=== PATIENT | female | born 1955 | race Caucasian/White ===

== ENCOUNTER → 2017-05-13 | Outpatient (CLI) | payer BC ==
[~2017-05-13] MED LIST: ASPEC81 PO; MAGN400T6 PO; METO25TA56 PO; [UNRECOGNIZED DRUG - OTHER] PO
[2017-05-13 11:28] LABS: ALT/SGPT 38 U/L (12-78); AST/SGOT 31 U/L (15-37); BLOOD UREA NITROGEN 21 mg/dl (7-18); BUN/CREATININE RATIO 17.8 (10-20); CARBON DIOXIDE 29 mmol/L (21-32); CHLORIDE 107 mmol/L (98-107); GLUCOSE 92 mg/dl (70-99); POTASSIUM 4.4 mmol/L (3.5-5.1); SODIUM 141 mmol/L (136-145)
[2017-05-13 11:31] LABS: CHOLESTEROL 143 mg/dl (0-200); CHOLESTEROL/HDL RATIO 2.3; HDL CHOLESTEROL 61 mg/dl; LDL CHOLESTEROL CALCULATED 70 mg/dl; TRIGLYCERIDES 62 mg/dl (0-150); VERY LOW DENSITY LIPOPROT CALC 12 mg/dl
[2017-05-13 13:26] LABS: CALCIUM 9.9 mg/dl (8.5-10.1)
== END | disposition home or self-care (01) ==
LOC: C.LABBC 07:14
DX: I10 Essential (primary) hypertension (principal); E78.5 Hyperlipidemia, unspecified

== ENCOUNTER → 2017-07-14 | Outpatient (CLI) | payer BC | END | disposition home or self-care (01) | LOC: C.MAMM 10:51 | DX: Z13.820 Encounter for screening for osteoporosis (principal); M85.851 Other specified disorders of bone density and structure, right thigh; M85.852 Other specified disorders of bone density and structure, left thigh; M85.88 Other specified disorders of bone density and structure, other site ==

== ENCOUNTER → 2017-07-14 | Outpatient (CLI) | payer BC ==
--- NOTE | 2017-07-14 12:30 | DIAGNOSTIC IMAGING REPORT ---
BILATERAL CAROTID DOPPLER STUDY HISTORY: THYROID Nodule, hx OF CAROTID STENOSIS COMPARISON: Carotid Doppler 01/25/2014. TECHNIQUE: Real-time, grayscale, and color Doppler sonography of the carotid arteries was performed. Imaging reviewed in the transverse and longitudinal planes. All measurements were calculated based on NASCET criteria. FINDINGS: Antegrade flow is seen in the bilateral vertebral arteries. The brachial pressures are hemodynamically similar. Bilateral carotid bifurcation calcified plaque, right greater than left. The peak systolic velocity within the right ICA is 148 cm/s proximally. The right systolic ratio is 2.8. The peak systolic velocity within the left ICA is 72 cm/s. The left systolic ratio is 1.1. IMPRESSION: 1. Approximately 50-60% stenosis within the proximal right internal carotid artery. This is similar to the prior study. 2. No significant stenosis within the left carotid arteries. Electronically signed by: Rusty Bojorquez M.D. 07/14/2017 12:29 PM Dictated Date/Time: 07/14/2017 12:26 PM
== END | disposition home or self-care (01) ==
LOC: C.ULTR 11:37
DX: I65.29 Occlusion and stenosis of unspecified carotid artery (principal)

== ENCOUNTER → 2017-08-04 | Outpatient (CLI) | payer BC | END | disposition home or self-care (01) | LOC: C.LABBC 09:01 | DX: M85.80 Other specified disorders of bone density and structure, unspecified site (principal) ==

== ENCOUNTER → 2017-10-23 | Outpatient (CLI) | payer BC | END | disposition home or self-care (01) | LOC: C.LABBC 07:55 | DX: E55.9 Vitamin D deficiency, unspecified (principal) ==

== ENCOUNTER → 2018-03-24 | Outpatient (CLI) | payer OTHER ==
[2018-03-24 14:22] LABS: INFLUENZA A PCR Neg for Influ A (NEG)
[2018-03-24 14:25] LABS: INFLUENZA B PCR POS for Influ B (NEG)
== END | disposition home or self-care (01) ==
LOC: C.LAB 12:09
DX: R50.9 Fever, unspecified (principal); R05 Cough

== ENCOUNTER → 2018-06-26 | Outpatient (CLI) | payer OTHER ==
[2018-06-26 11:23] LABS: ALT/SGPT 31 U/L (12-78); AST/SGOT 27 U/L (15-37); BLOOD UREA NITROGEN 17 mg/dl (7-18); CALCIUM 9.3 mg/dl (8.5-10.1); CARBON DIOXIDE 27 mmol/L (21-32); CHOLESTEROL 123 mg/dl (0-200); CREATININE 1.28 mg/dl (0.60-1.20); GLUCOSE 91 mg/dl (70-99); LDL CHOLESTEROL CALCULATED 50 mg/dl; POTASSIUM 4.3 mmol/L (3.5-5.1); SODIUM 138 mmol/L (136-145)
== END | disposition home or self-care (01) ==
LOC: C.LABBC 07:51
DX: I10 Essential (primary) hypertension (principal); E78.5 Hyperlipidemia, unspecified; M85.88 Other specified disorders of bone density and structure, other site

== ENCOUNTER 2025-04-24 09:00 | Observation (INO) ==
[2025-04-24 09:54] LABS: Basophils # (auto) 0.05 K/uL (0.00-0.20); Basophils % (auto) 1.4 %; Eosinophils # (auto) 0.01 K/uL (0.00-0.50); Eosinophils % (auto) 0.3 %; Hematocrit (blood only) 34.1 % (37.0-47.0); Hemoglobin 11.7 g/dl (12.0-16.0); Immature Granulocytes # (auto) 0.02 K/uL (0.01-0.20); Immature Granulocytes % (auto) 0.6 %; Lymphocytes # (auto) 0.81 K/uL (1.20-3.40); Lymphocytes % (auto) 23.1 %; Mean Corpuscular Hemoglobin 34.1 pg (25.0-34.0); Mean Corpuscular Hgb Conc 34.3 g/dL (32.0-36.0); Mean Corpuscular Volume 99.4 fL (80.0-100.0); Mean Platelet Volume 8.4 fL (9.4-12.4); Monocytes # (auto) 0.15 K/uL (0.11-0.59); Monocytes % (auto) 4.3 %; Neutrophils # (auto) 2.47 K/uL (1.40-6.50); Neutrophils % (auto) 70.3 %; Platelet Count 353 K/uL (130-400); RDW Coefficient of Variation 15.2 % (11.5-14.5); RDW Standard Deviation 55.4 fL (36.4-46.3); Red Blood Count 3.43 M/uL (4.20-5.40); White Blood Count 3.51 K/ul (4.8-10.8)
--- NOTE | 2025-04-24 10:02 | CT Scan Report ---
EXAM: CT Abdomen and Pelvis Without Intravenous Contrast INDICATION: Nausea, vomiting and dysuria. TECHNIQUE: Axial computed tomography images of the abdomen and pelvis without intravenous contrast. Sagittal and coronal reformatted images were created and reviewed. This CT exam was performed using one or more of the following dose reduction techniques: automated exposure control, adjustment of the mA and/or kV according to patient size, and/or use of iterative reconstruction technique. COMPARISON: 03/31/2025 FINDINGS: Limitations: None. Lung bases: Stable coarse scarring in the right lower lobe. Pleural space: No visualized pleural effusion or pneumothorax. Heart: No abnormality noted. Mediastinum: No abnormality noted. ABDOMEN: Liver: Lack of intravenous contrast limits detection of some masses. No abnormality noted. Gallbladder and bile ducts: No calcified stones or surrounding fluid. No ductal dilation. Pancreas: No pancreatic mass, calcification, inflammation or ductal dilation noted. Spleen: No significant abnormality noted. Adrenals: No significant abnormality noted. Kidneys and ureters: No abnormality noted. No stones. No hydronephrosis. No significant perinephric fluid. Stomach and bowel: Limited assessment of the gastrointestinal tract given moderate surrounding ascites, generalized mesenteric, omental and body wall edema and lack of opacification. There are multiple distal left colonic diverticula. There are multiple dilated thickened small bowel loops which are poorly assessed. There is thickening of the right, transverse and proximal descending colon. There are 2 vague rounded opacities surrounded by ascitic fluid in the pelvis which are likely bowel loops. No visible pneumatosis. PELVIS: Appendix: No findings to suggest acute appendicitis. Bladder: Appears normal for the degree of filling. No stones or inflammation. No large mass. Masses may not be detected in the absence of opacification. Reproductive: No abnormalities noted. ABDOMEN and PELVIS: Intraperitoneal space: There is now small to moderate amounts of low-density ascitic fluid in the abdomen and pelvis. No free air. No organized or loculated collection. Bones/joints: No acute changes. Soft tissues: No significant abnormality noted. Vasculature: Atherosclerotic calcification of the aorta and branches. No aneurysm. Lymph nodes: No pathologically enlarged lymph nodes. IMPRESSION: 1. There is now moderate ascitic fluid and generalized edema within the mesentery, omentum and body wall which limits assessment of the intestinal tract. Impression diffuse small bowel thickening as well as thickening of the right and transverse colon probable. No obstruction. Enterocolitis considered. 2. No drainable collection or free air noted. ACT 112: N/A Electronically signed by Glo Garza 04-24-2025 10:02 AM
--- NOTE | 2025-04-24 10:12 | Emergency Department Note ---
History of Present Illness General Chief complaint: Flu Like Symptoms Stated complaint: SOMACH FLU,DEHYDRATION,NAUSEA Time Seen by Provider: 04/24/25 09:10 History of Present Illness Provider Complaint: + nausea, + vomiting, + diarrhea and + abdominal pain Onset (ago): week(s) 2 Description of Vomiting: no bilious, no blood-streaked, no bloody or no coffee grounds Description of Diarrhea: no mucousy, no tarry, no blood-streaked or no bloody (bright red) Associated Abdominal Pain: Yes Location of pain: + diffuse Maximum Pain Intensity: 5 Current Pain Intensity: 5 Quality: + cramping and + aching Pain Consistency: + intermittent Relieved By: + none Exacerbated By: + bowel movement Context: + recent antibiotic use (Patient states she was recently on cefuroxime and Bactrim secondary to a recurrent UTI); no foreign travel, no possible food poisoning, no trauma, no anticoagulant use, no NSAID use, no caffeine, no smoking or no marijuana use Associated symptoms: + decreased urine output; no myalgias, no cough, no diaphoresis, no fever/chills (Tmax 99), no rash, no dysuria, no anxiety or no numbness HPI Narrative: Patient currently on oral chemotherapy for breast cancer Home Medications Medication Instructions Recorded Confirmed Type cholecalciferol (vitamin D3) 50 50 mcg PO DAILY 02/18/22 04/24/25 History mcg (2,000 unit) capsule magnesium oxide 400 mg (241.3 mg 400 mg PO DAILY 02/18/22 04/24/25 History magnesium) tablet denosumab 60 mg/mL subcutaneous 60 mg subcut .Q6 months 09/18/22 04/24/25 History syringe (Prolia) loratadine 10 mg tablet (Claritin) 10 mg PO DAILY PRN Allergy Symptoms 09/18/22 04/24/25 History fulvestrant 250 mg/5 mL 500 mg IM MO 12/08/23 04/24/25 History intramuscular syringe (Faslodex) rosuvastatin 5 mg tablet 5 mg PO DAILY #90 tabs 06/07/24 04/24/25 Rx palbociclib 125 mg capsule 100 mg PO DAILY 06/21/24 04/24/25 History (Ibrance) gabapentin 300 mg capsule 300 mg PO HS PRN shoulder pain #90 08/10/24 04/24/25 Rx caps amlodipine 5 mg tablet 5 mg PO DAILY #90 tabs 02/02/25 04/24/25 Rx sulfamethoxazole 800 1 tab PO BID 7 days #14 tabs 04/19/25 04/24/25 Rx mg-trimethoprim 160 mg tablet Allergies Allergy/AdvReac Type Severity Reaction Status Date / Time diazepam [From Valium] AdvReac Unknown Panic Verified 04/14/25 13:25 attack Past Med/Surg History Problem List (Updated 04/24/25 @ 11:46 by Zuhair Flores MD) JANET (acute kidney injury) (Acute) Hyponatremia (Acute) Myofascial pain Spasm of right trapezius muscle Malignant neoplasm of breast Right cervical radiculopathy Biceps tendinitis of right shoulder Anterolisthesis of cervical spine Disc-osteophyte complex Facet arthropathy, cervical Neuroforaminal stenosis of cervical spine Hypercalcemia Acquired deviated nasal septum Atopic dermatitis of face Chronic neck pain Cervical spondylosis Hypertension Osteoporosis Hypercholesteremia Carotid stenosis Metastatic adenocarcinoma (Chronic 08/22/20) Right cervical lymph node 08/22/2020; follows w/ Dr Sanches and [facility] Dr Reyes Medical History Prophylactic chemotherapy oral and monthly injection Seasonal allergies Retinal detachment Right Thyroid nodule monitoring Surgical History History of bilateral mastectomy 01/31/25 History of lumpectomy cancerous masses removed from neck and inside mouth History of cataract surgery Right eye only History of lung surgery VATS- 2010 Hx of colonoscopy History of appendectomy Family History Mother , 68yo CHF (congestive heart failure) Hypertension Heart disease Father , 87yo Parkinsons Hypertension Brother Hypertension Sister No problems noted. Son No problems noted. Son No problems noted. Son No problems noted. Other No family history of adverse response to anesthesia No family history of bleeding disorder Social History Smoking Status: Never smoker Tobacco Type: Cigarettes Age Started Using Tobacco: 15; Age Quit Using Tobacco: 31; packs per day: 1; Cigarettes Per Day: 1 PPD x 15yrs; Second Hand Exposure: No; Do You Dip or Chew Tobacco: No; Hx Alcohol Use: Yes Alcohol type: wine Hx Substance Use: No Preferred Language: Wolof Communication Ability: Effective Visual Impairment: No Limitations Hearing Ability: Normal Industrial Relations Representative Required: No Beliefs That Will Affect Care: None marital status: Current Living Situation: Spouse current occupational status: retired current occupation: Mental health counselor at [employer] Feels Safe at Home: Yes Diet: other caffeine: Yes (2 cups/day) during the past year weight has: remained stable Seatbelt Use: always Assistive Devices: Glasses Physical Exam 2 Vital Signs: Vital Signs - 24 hr 04/24/25 09:05 04/24/25 09:55 04/24/25 10:27 Temperature 35.8 C L Temperature Source Oral Pulse Rate 94 H 84 84 Pulse Rate from Sp O2 Sensor Pulse Rhythm Regular Regular Pulse Strength Normal Respiratory Rate 18 18 Blood Pressure 119/80 Blood Pressure [place] n 93 Blood Pressure Pos ition Sitting Pulse Oximetry 99 99 Oxygen Delivery Me thod Room Air Room Air Sepsis Recent Feve r Within 48 Hours No Sepsis New/Unexpla ined Change in Men aishwarya Status No Sepsis Action Take n by Nursing No Action Required 04/24/25 10:27 04/24/25 10:57 Temperature Temperature Source Pulse Rate 84 Pulse Rate from Sp O2 Sensor 84 87 Pulse Rhythm Pulse Strength Respiratory Rate 13 16 Blood Pressure 114/77 123/79 Blood Pressure [place] n 89 93 Blood Pressure Pos ition Pulse Oximetry 97 95 Oxygen Delivery Me thod Sepsis Recent Feve r Within 48 Hours Sepsis New/Unexpla ined Change in Men aishwarya Status Sepsis Action Take n by Nursing Physical Exam: Physical Exam GENERAL: oriented to person, place, and time. appears well-developed and well- nourished. She does not appear distressed. HENT: Exam performed. -Head: Normocephalic and atraumatic. -Right Ear: External ear normal. No mastoid erythema -Left Ear: External ear normal. No mastoid erythema -Mouth/Throat: The oropharynx is clear and moist. No trismus in the jaw. No dental abscesses or uvula swelling. No oropharyngeal exudate or tonsillar abscesses. EYES: Conjunctivae and EOM are normal.Right eye exhibits no discharge. Left eye exhibits no discharge. No scleral icterus. NECK: Normal range of motion. Neck supple. No JVD present. No tracheal deviation and normal range of motion present. CV: Normal rate, regular rhythm, normal heart sounds and intact distal pulses. There is no peripheral edema. Palpable radial pulses bue. PULM/CHEST: Effort normal and breath sounds normal. No respiratory distress. No stridor. no wheezes.no rales. -Chest Wall: no tenderness to palpation ABD: The abdomen is soft. Bowel sounds are normal. no distension. No mass is present. There is no tenderness. There is no rebound, no guarding, no Rodriguez's sign and no tenderness at McBurney's point. Rovsig negative. No CVA tenderness bilaterally. MUSC/SKEL: Normal range of motion. There is no peripheral edema, tenderness or deformity. NEURO: Motor and sensation grossly intact. SKIN: Skin is warm and dry. not diaphoretic. PSYCH: normal mood and affect. Behavior is normal. Judgment and thought content normal. Course Course 09: The patient was evaluated in room C7. A complete history and physical exam was performed Cardiac monitoring: An order was placed for continuous cardiac monitoring. The monitor shows a rate of 90 with sinus rhythm interpreted by me 1040: Vital signs stable. Labs are significant for sodium of 126 and a creatinine of 1.6. Normal saline IV fluids given to the patient. No seizure- like activity normal mental status no need for hypertonic saline. IV fluids continued. Awaiting stool cultures. [facility]. Administered Medications Discontinued Medications Sodium Chloride (Nss) 1,000 mls @ 999 mls/hr IV .Q1H1M [facility] Stop: 04/24/25 10:30 Last Admin: 04/24/25 10:23 Dose: 999 mls/hr Documented By: ISMAEL Lidocaine HCl (Lidocaine 1% Local 20 Ml Vial) Confirm Administered Dose 1 ml .ROUTE .STK-MED ONE Stop: 04/24/25 10:21 Last Admin: 04/24/25 10:47 Dose: Not Given Documented By: ISMAEL Ondansetron HCl (Ondansetron Inj 2 Mg/Ml 2 Ml Vial) 4 mg IV NOW STA Stop: 04/24/25 09:27 Last Admin: 04/24/25 10:23 Dose: 4 mg Documented By: ISMAEL Medical Decision Making Laboratory Data Attestation: I reviewed the patient's lab results. 04/24/25 09:39 04/24/25 09:39 Lab Results 04/24/25 04/24/25 04/24/25 Range/Units 09:39 10:21 10:59 WBC 3.51 L (4.8-10.8) K/ul RBC 3.43 L (4.20-5.40) M/uL Hgb 11.7 L (12.0-16.0) g/dl Hct 34.1 L (37.0-47.0) % MCV 99.4 (80.0-100.0) fL MCH 34.1 H (25.0-34.0) pg MCHC 34.3 (32.0-36.0) g/dL RDW Std Deviation 55.4 H (36.4-46.3) fL RDW Coeff of Ute 15.2 H (11.5-14.5) % Plt Count 353 (130-400) K/uL MPV 8.4 L (9.4-12.4) fL Immature Gran % (Auto) 0.6 % Neut % (Auto) 70.3 % Lymph % (Auto) 23.1 % [place] % (Auto) 4.3 % Eos % (Auto) 0.3 % Baso % (Auto) 1.4 % Neut # (Auto) 2.47 (1.40-6.50) K/uL Lymph # (Auto) 0.81 L (1.20-3.40) K/uL [place] # (Auto) 0.15 (0.11-0.59) K/uL Eos # (Auto) 0.01 (0.00-0.50) K/uL Baso # (Auto) 0.05 (0.00-0.20) K/uL Immature Gran # (Auto) 0.02 (0.01-0.20) K/uL PT 11.8 (9.0-12.0) Seconds INR 1.1 (0.9-1.1) APTT 27 (21-31) Seconds PTT Ratio 1.0 Sodium 126 L (136-145) mmol/L Potassium 4.4 (3.5-5.1) mmol/L Chloride 95 L (98-107) mmol/L Carbon Dioxide 20 L (21-32) mmol/L Anion Gap 11 (3-11) BUN 30 H (6-23) mg/dl Creatinine 1.60 H (0.6-1.2) mg/dl Est Cr Clr Drug Dosing 27.1 ml/min eGFR 34.27 BUN/Creatinine Ratio 18.8 (10-20) Glucose 88 (70-99(Fasting)) mg/dl Lactate 1.1 (0.4-2.0) mmol/L Calcium 10.2 (8.6-10.3) mg/dl Magnesium 2.1 (1.7-2.4) mg/dl Total Bilirubin 0.5 (0.2-1.0) mg/dl Direct Bilirubin 0.1 (0-0.2) mg/dl AST 29 (13-39) U/L ALT 21 (7-52) U/L Alkaline Phosphatase 48 (34-104) U/L Troponin I High Sens 6.6 (0-14) pg/ml Total Protein 6.9 (6.0-8.3) gm/dl Albumin 4.1 (3.4-5.0) gm/dl Lipase 16 (11-82) U/L Procalcitonin 0.17 (0-0.5) ng/ml Urine Color Yellow Urine Appearance Clear (Clear) Urine pH 5.5 (4.5-7.5) Ur Specific Martin 1.023 (1.000-1.030) Urine Protein Negative (Negative) Urine Glucose (UA) Negative (Negative) Urine Ketones 1+ H (Negative) Urine Blood Negative (Negative) Urine Nitrite Negative (Negative) Urine Bilirubin Negative (Negative) Urine Urobilinogen Negative (Negative) Ur Leukocyte Esterase Negative (Negative) Urine Comment Adenovirus (PCR) Not Detected (NotDetected) B. pertussis DNA (PCR) Not Detected (NotDetected) B.parapertussis DNA PCR Not Detected (NotDetected) C. pneumoniae DNA (PCR) Not Detected (NotDetected) Coronavirus OC43 (PCR) Not Detected (NotDetected) Coronavirus HKU1 (PCR) Not Detected (NotDetected) Coronavirus 229E (PCR) Not Detected (NotDetected) SARS-CoV-2 (PCR) Not Detected (NotDetected) Coronavirus NL63 (PCR) Not Detected (NotDetected) Human Metapneumovir PCR Not Detected (NotDetected) Influenza Type A (PCR) Not Detected (NotDetected) Influenza Type B (PCR) Not Detected (NotDetected) M. pneumoniae (PCR) Not Detected (NotDetected) Parainfluenza 1 (PCR) Not Detected (NotDetected) Parainfluenza 2 (PCR) Not Detected (NotDetected) Parainfluenza 3 (PCR) Not Detected (NotDetected) Parainfluenza 4 (PCR) Not Detected (NotDetected) RSV (PCR) Not Detected (NotDetected) Entero/Rhino (PCR) Not Detected (NotDetected) Imaging Data Attestation: I personally reviewed and interpreted this imaging study as follows: My Impression: Chest x-ray negative. Airway clear. No pneumothorax. No consolidation. No cardiomegaly or cephalization.. No free air under the diaphragm. No fractures of the skeletal structures. Radiologist's Impression: Abdomen/Pelvis CT 04/24/25 09:24 EXAM: CT Abdomen and Pelvis Without Intravenous Contrast INDICATION: Nausea, vomiting and dysuria. TECHNIQUE: Axial computed tomography images of the abdomen and pelvis without intravenous contrast. Sagittal and coronal reformatted images were created and reviewed. This CT exam was performed using one or more of the following dose reduction techniques: automated exposure control, adjustment of the mA and/or kV according to patient size, and/or use of iterative reconstruction technique. COMPARISON: 03/31/2025 FINDINGS: Limitations: None. Lung bases: Stable coarse scarring in the right lower lobe. Pleural space: No visualized pleural effusion or pneumothorax. Heart: No abnormality noted. Mediastinum: No abnormality noted. ABDOMEN: Liver: Lack of intravenous contrast limits detection of some masses. No abnormality noted. Gallbladder and bile ducts: No calcified stones or surrounding fluid. No ductal dilation. Pancreas: No pancreatic mass, calcification, inflammation or ductal dilation noted. Spleen: No significant abnormality noted. Adrenals: No significant abnormality noted. Kidneys and ureters: No abnormality noted. No stones. No hydronephrosis. No significant perinephric fluid. Stomach and bowel: Limited assessment of the gastrointestinal tract given moderate surrounding ascites, generalized mesenteric, omental and body wall edema and lack of opacification. There are multiple distal left colonic diverticula. There are multiple dilated thickened small bowel loops which are poorly assessed. There is thickening of the right, transverse and proximal descending colon. There are 2 vague rounded opacities surrounded by ascitic fluid in the pelvis which are likely bowel loops. No visible pneumatosis. PELVIS: Appendix: No findings to suggest acute appendicitis. Bladder: Appears normal for the degree of filling. No stones or inflammation. No large mass. Masses may not be detected in the absence of opacification. Reproductive: No abnormalities noted. ABDOMEN and PELVIS: Intraperitoneal space: There is now small to moderate amounts of low-density ascitic fluid in the abdomen and pelvis. No free air. No organized or loculated collection. Bones/joints: No acute changes. Soft tissues: No significant abnormality noted. Vasculature: Atherosclerotic calcification of the aorta and branches. No aneurysm. Lymph nodes: No pathologically enlarged lymph nodes. IMPRESSION: 1. There is now moderate ascitic fluid and generalized edema within the mesentery, omentum and body wall which limits assessment of the intestinal tract. Impression diffuse small bowel thickening as well as thickening of the right and transverse colon probable. No obstruction. Enterocolitis considered. 2. No drainable collection or free air noted. ACT 112: N/A Electronically signed by Glo Garza 04-24-2025 10:02 AM Chest X-Ray 04/24/25 09:26 EXAM: Radiograph of the Chest 1 View INDICATION: Sepsis TECHNIQUE: Frontal view of the chest. COMPARISON: 11/30/2021 FINDINGS: Lungs and pleural spaces: Stable hyperinflation and minimal right basilar pleural and parenchymal scarring. No consolidation or pulmonary edema. No pleural effusion or pneumothorax. Heart: Shape and configuration within normal limits allowing for technique. Mediastinum: Normal contour. Bones/joints: No fracture, erosion or dislocation. Soft tissues: No abnormality noted. No radiopaque foreign body noted. Vasculature: Stable ectatic aorta. Upper abdomen: No abnormality noted. IMPRESSION: Stable chronic changes. No acute disease. ACT 112: N/A Electronically signed by Glo Garza 04-24-2025 10:47 AM ECG Data Attestation: I personally reviewed and interpreted this ECG as follows: Rate (beats per minute): 84 Rhythm: normal sinus Findings: no ST depression, no ST elevation or no prolonged QT Additional Comments: QRS 74 MDM Narrative 0910: The patient was evaluated in room C7. A complete history and physical exam was performed Cardiac monitoring: An order was placed for continuous cardiac monitoring. The monitor shows a rate of 90 with sinus rhythm interpreted by me 1040: Vital signs stable. Labs are significant for sodium of 126 and a creatinine of 1.6. Normal saline IV fluids given to the patient. No seizure- like activity normal mental status no need for hypertonic saline. IV fluids continued. Awaiting stool cultures. [facility] Impression & Plan Hyponatremia, JANET (acute kidney injury) Discharge Plan Visit Data Chief Complaint: Flu Like Symptoms Stated Complaint: SOMACH FLU,DEHYDRATION,NAUSEA ED Provider: Zuhair Flores Discharge Problem: Hyponatremia, JANET (acute kidney injury) Patient Disposition: Admitted As Inpatient Condition: Fair Forms Stand Alone Forms: My [facility] Prescriptions Prescriptions: No Action Prolia 60 mg/mL syringe 60 mg subcut .Q6 months rosuvastatin 5 mg tablet 5 mg PO DAILY Qty: 90 3RF amlodipine 5 mg tablet 5 mg PO DAILY Qty: 90 3RF sulfamethoxazole-trimethoprim 800-160 mg tablet 1 tab PO BID 7 Days Qty: 14 0RF cholecalciferol (vitamin D3) 50 mcg (2,000 unit) capsule 50 mcg PO DAILY magnesium oxide 400 mg (241.3 mg magnesium) tablet 400 mg PO DAILY loratadine [Claritin] 10 mg tablet 10 mg PO DAILY PRN (Reason: Allergy Symptoms) fulvestrant [Faslodex] 250 mg/5 mL syringe 500 mg IM MO Rx Instructions: may divide dose into 2 equally divided injections; one into each buttock Ibrance 125 mg capsule 100 mg PO DAILY Rx Instructions: administer on days 1 through 21 of a 28-day treatment cycle gabapentin 300 mg capsule 300 mg PO HS PRN (Reason: shoulder pain) Qty: 90 3RF Referrals Referrals: Ruby Jha MD [Primary Care Provider] -
[2025-04-24 10:16] LABS: Troponin I High Sensitivity 6.6 pg/ml (0-14)
[2025-04-24] MEDS: ONDANSETRON INJ 2 MG/ML 2 ML VIAL IV STA (10:23)
[2025-04-24] MEDS: SODIUM CHLORIDE 0.9% 1,000 ML IV SCH ×2 (10:23→11:46)
[2025-04-24 10:24] LABS: Bilirubin Direct 0.1 mg/dl (0-0.2); Bilirubin,Total 0.5 mg/dl (0.2-1.0); Calcium 10.2 mg/dl (8.6-10.3); Magnesium 2.1 mg/dl (1.7-2.4); Potassium 4.4 mmol/L (3.5-5.1)
[2025-04-24 10:30] LABS: BUN Creatinine Ratio 18.8 (10-20); Creatinine Clr Calc Pharmacy 27.1 ml/min; Total Protein 6.9 gm/dl (6.0-8.3)
[2025-04-24 10:46] LABS: Adenovirus PCR Not Detected (NotDetected); Bordetella parapertussis PCR Not Detected (NotDetected); Bordetella pertussis PCR Not Detected (NotDetected); Chlamydia pneumoniae PCR Not Detected (NotDetected); Coronavirus 229E PCR Not Detected (NotDetected); Coronavirus CoV-2 (COVID19)PCR Not Detected (NotDetected); Coronavirus HKU1 PCR Not Detected (NotDetected); Coronavirus NL63 PCR Not Detected (NotDetected); Coronavirus OC43PCR Not Detected (NotDetected); Human Metapneumovirus PCR Not Detected (NotDetected); Influenza A PCR Not Detected (NotDetected); Influenza B PCR Not Detected (NotDetected); Mycoplasma pneumoniae PCR Not Detected (NotDetected); Parainfluenza Virus 1 PCR Not Detected (NotDetected); Parainfluenza Virus 2 PCR Not Detected (NotDetected); Parainfluenza Virus 3 PCR Not Detected (NotDetected); Parainfluenza Virus 4 PCR Not Detected (NotDetected); Respiratory Syncytial VirusPCR Not Detected (NotDetected); Rhinovirus/Enterovirus PCR Not Detected (NotDetected)
[2025-04-24] MEDS: LIDOCAINE 1% LOCAL 20 ML VIAL ONE (10:47)
--- NOTE | 2025-04-24 10:48 | XRay Report ---
EXAM: Radiograph of the Chest 1 View INDICATION: Sepsis TECHNIQUE: Frontal view of the chest. COMPARISON: 11/30/2021 FINDINGS: Lungs and pleural spaces: Stable hyperinflation and minimal right basilar pleural and parenchymal scarring. No consolidation or pulmonary edema. No pleural effusion or pneumothorax. Heart: Shape and configuration within normal limits allowing for technique. Mediastinum: Normal contour. Bones/joints: No fracture, erosion or dislocation. Soft tissues: No abnormality noted. No radiopaque foreign body noted. Vasculature: Stable ectatic aorta. Upper abdomen: No abnormality noted. IMPRESSION: Stable chronic changes. No acute disease. ACT 112: N/A Electronically signed by Glo Garza 04-24-2025 10:47 AM
[2025-04-24 11:08] LABS: INR 1.1 (0.9-1.1); Partial Thromboplastin Time 27 Seconds (21-31); Prothrombin Time 11.8 Seconds (9.0-12.0)
[2025-04-24 11:17] LABS: Appearance Urine Clear (Clear); Bilirubin Urine Negative (Negative); Blood Urine Negative (Negative); Color Urine Yellow; Glucose Urine UA Negative (Negative); Ketones Urine 1+ (Negative); Leukocyte Esterase Urine Negative (Negative); Nitrite Urine Negative (Negative); Protein Urine Negative (Negative); Specific Gravity Urine 1.023 (1.000-1.030); Urobilinogen Urine Negative (Negative); pH Urine 5.5 (4.5-7.5)
--- NOTE | 2025-04-24 11:19 | History & Physical Report ---
Date of Service April 24, 2025 Assessment & Plan (1) JANET (acute kidney injury): (2) Hyponatremia: (3) Enterocolitis: (4) Malignant neoplasm of breast: Plan This patient is a 70-year-old female with a history of metastatic adenocarcinoma of the breast with mets to cervical lymph nodes/lung/extraocular muscles/lip/bone currently on chemotherapy with Ibrance/fulvestrant, GEORGE, osteoporosis, allergies, HLD, HTN who presents to the ER with nausea/vomiting and diarrhea with some abdominal cramping after being recently treated for urinary tract infection with cefuroxime and then switched to Bactrim. In the ER, she was found to be hyponatremic with a sodium of 126, with JANET with creatinine 1.6, normal lactate, normal vital signs except for mildly low temperature. Her UA only showed ketones but did not show evidence of infection. A CT abdomen/pelvis showed new small to moderate amount of ascites, and generalized mesenteric edema, and diffuse small bowel thickening as well as thickening of right and transverse colon consistent with possible enterocolitis. #Nausea/vomiting/diarrhea/enterocolitis/ascites-with diffuse small bowel and some large bowel enterocolitis seen on CT, with nausea/vomiting and diarrhea after taking antibiotics. Could have infectious enterocolitis to include C. difficile given recent antibiotic use. Could be viral infection. With new development of mild to moderate ascites, and history of metastatic cancer, also concern for this as well being related to progressive malignancy in the omentum although no discrete masses seen in the abdomen. LFTs, lipase, and UA within normal limits. Not febrile no evidence of sepsis but is immunosuppressed currently on chemotherapy - Admit to medical/surgical unit - Keep n.p.o. except ice chips/sips and medications-slowly advance diet as tolerated - Continue LR at 125 mL/h x 2 more liters - Give IV Zofran as needed for nausea, IV morphine as needed for abdominal pain - Check stool PCR and C. difficile - Consult oncology for opinion on increasing ascites in the abdomen #Hyponatremia/JANET-sodium 126, creatinine up to 1.6 on admission. Urine osmolality quite elevated in the 500s, urine sodium low at 22-consistent with hypovolemia and she is with very poor p.o. intake over the last 5-6 days. She also has been taking Bactrim which can increase the creatinine. - Continue IV fluid resuscitation with isotonic fluids - Follow BMP in the morning - No further Bactrim needed #Recent UTI-she has received a total of 9 days of antibiotics between cefuroxime and Bactrim as an outpatient for suspected early pyelonephritis given fevers and urinary symptoms starting prior to 04/14. UA here negative for infection - In light of the fact that she could have C. difficile enterocolitis, will not give any further antibiotics #Metastatic breast cancer on chemotherapy/leukopenia/anemia-patient with known metastatic disease to the extraorbital region bilaterally, lip, cervical lymph nodes, bone, lung. Now with increasing ascites on CT abdomen/pelvis. She is status post bilateral mastectomy in 01/2025. Follows with Dr. Sanches at [facility] as well as a medical oncologist at [place]. She is currently on Ibrance cycling 3 weeks on 1 week off and monthly intramuscular injections of fulvestrant which she received approximately 1 week ago. With mild leukopenia and anemia - Holding home Ibrance as she is off this cycle - Consult oncology - Follow CBC #HTN-blood pressures are normal - Hold home amlodipine while not taking p.o. and to avoid hypotension in the setting of hypovolemia #Osteoporosis-no acute issues. Is on vitamin D and Prolia - Hold home vitamin D until nausea improved DVT prophylaxis-high risk for VTE, will give heparin SQ, SCDs Disposition-admit to medical/surgical unit History of Present Illness Chief Complaint: Nausea/vomiting/diarrhea, abdominal pain Primary Care Provider: Ruby Jha MD This patient is a 70-year-old female with a history of metastatic adenocarcinoma of the breast with mets to cervical lymph nodes/lung/extraocular muscles/lip/bone currently on chemotherapy with Ibrance/fulvestrant, GEORGE, osteoporosis, allergies, HLD, HTN who presents to the ER with nausea/vomiting and diarrhea after being recently treated for urinary tract infection with cefuroxime and then switched to Bactrim. She was seen by PCP last week and complained of urinary urgency, foul-smelling urine, suprapubic cramping, and a fever to 103. She was started on cefuroxime and had improvement in the urinary symptoms and fever but then developed profuse diarrhea x 2 days along with nausea. She was not able to eat or drink much of anything for the last 5 to 6 days except small sips of water. She was able to keep down her antibiotics but that maybe the antibiotic caused the problem so her PCP switched her to Bactrim. The diarrhea went away for several days as she was unable to eat but then she had another loose stool last evening. She denies significant abdominal pain but has some lower abdominal cramping. There is no blood in the stool or vomit. Her urine output has gone down. In the ER, she was found to be hyponatremic with a sodium of 126, with JANET with creatinine 1.6, normal lactate, normal vital signs except for mildly low temperature. Her UA only showed ketones but did not show evidence of infection. A CT abdomen/pelvis showed new small to moderate amount of ascites, and generalized mesenteric edema, and diffuse small bowel thickening as well as thickening of right and transverse colon consistent with possible enterocolitis. Allergies Allergy/AdvReac Type Severity Reaction Status Date / Time diazepam [From Valium] AdvReac Unknown Panic Verified 04/14/25 13:25 attack Home Medications Medication Instructions Recorded Confirmed Type cholecalciferol (vitamin D3) 50 50 mcg PO DAILY 02/18/22 04/24/25 History mcg (2,000 unit) capsule magnesium oxide 400 mg (241.3 mg 400 mg PO DAILY 02/18/22 04/24/25 History magnesium) tablet denosumab 60 mg/mL subcutaneous 60 mg subcut .Q6 months 09/18/22 04/24/25 History syringe (Prolia) loratadine 10 mg tablet (Claritin) 10 mg PO DAILY PRN Allergy Symptoms 09/18/22 04/24/25 History fulvestrant 250 mg/5 mL 500 mg IM MO 12/08/23 04/24/25 History intramuscular syringe (Faslodex) rosuvastatin 5 mg tablet 5 mg PO DAILY #90 tabs 06/07/24 04/24/25 Rx palbociclib 125 mg capsule 100 mg PO DAILY 06/21/24 04/24/25 History (Ibrance) gabapentin 300 mg capsule 300 mg PO HS PRN shoulder pain #90 08/10/24 04/24/25 Rx caps amlodipine 5 mg tablet 5 mg PO DAILY #90 tabs 02/02/25 04/24/25 Rx sulfamethoxazole 800 1 tab PO BID 7 days #14 tabs 04/19/25 04/24/25 Rx mg-trimethoprim 160 mg tablet Past Med/Surg History Problem List (Updated 04/24/25 @ 12:56 by Mela Gonzalez MD) Enterocolitis JANET (acute kidney injury) (Acute) Hyponatremia (Acute) Myofascial pain Spasm of right trapezius muscle Malignant neoplasm of breast Right cervical radiculopathy Biceps tendinitis of right shoulder Anterolisthesis of cervical spine Disc-osteophyte complex Facet arthropathy, cervical Neuroforaminal stenosis of cervical spine Hypercalcemia Acquired deviated nasal septum Atopic dermatitis of face Chronic neck pain Cervical spondylosis Hypertension Osteoporosis Hypercholesteremia Carotid stenosis Metastatic adenocarcinoma (Chronic 08/22/20) Right cervical lymph node 08/22/2020; follows w/ Dr Sanches and [facility] Dr Reyes Medical History Prophylactic chemotherapy oral and monthly injection Seasonal allergies Retinal detachment Right Thyroid nodule monitoring Surgical History History of bilateral mastectomy 01/31/25 History of lumpectomy cancerous masses removed from neck and inside mouth History of cataract surgery Right eye only History of lung surgery VATS- 2010 Hx of colonoscopy History of appendectomy Family History Mother , 68yo CHF (congestive heart failure) Hypertension Heart disease Father , 87yo Parkinsons Hypertension Brother Hypertension Sister No problems noted. Son No problems noted. Son No problems noted. Son No problems noted. Other No family history of adverse response to anesthesia No family history of bleeding disorder Social History Smoking Status: Never smoker Tobacco Type: Cigarettes Age Started Using Tobacco: 15; Age Quit Using Tobacco: 31; packs per day: 1; Cigarettes Per Day: 1 PPD x 15yrs; Second Hand Exposure: No; Do You Dip or Chew Tobacco: No; Hx Alcohol Use: Yes Alcohol type: wine Hx Substance Use: No Preferred Language: Serbian Communication Ability: Effective Visual Impairment: No Limitations Hearing Ability: Normal Cigarette Vendor Required: No Beliefs That Will Affect Care: None marital status: Current Living Situation: Spouse current occupational status: retired current occupation: Mental health counselor at [employer] Feels Safe at Home: Yes Diet: other caffeine: Yes (2 cups/day) during the past year weight has: remained stable Seatbelt Use: always Assistive Devices: Glasses Physical Exam Constitutional: WD/WN, vitals as above Eyes: Right eyelid ptosis, PERRLA ENMT: external ear and nose normal, oropharynx normal (Except paralyzed left upper lip) Neck: trachea midline, no thyromegaly Respiratory: normal respiratory effort, lungs clear to auscultation Cardiovascular: RRR, no murmur, no edema Vessels: dorsalis pedis pulses present Chest (Breasts): Chest: normal inspection of chest Gastrointestinal (Abdomen): normal bowel sounds, soft, nontender, no hepatosplenomegaly (With mild distention) Musculoskeletal: Extremities: extremities normal to inspection; no cyanosis and no clubbing Skin: no rashes, warm and dry Neurologic: moves all extremities and awake; no focal motor deficits Psychiatric: A+Ox3, euthymic affect Lymphatic: no lymphedema Results & Data Results & Data Vital Signs (Past 12 Hours) Vital Signs Temp Pulse Resp BP Pulse Ox O2 Del Method 04/24/25 10:57 16 123/79 95 04/24/25 10:27 84 13 114/77 97 04/24/25 10:27 84 04/24/25 09:55 84 18 99 Room Air 04/24/25 09:05 35.8 C L 94 H 18 119/80 99 Room Air Laboratory Results CBC, BMP, LFTs, lipase, lactate, PT/PTT/INR, troponin, procalcitonin, UA, respiratory bio fire panel all reviewed Diagnostic Findings CT abdomen/pelvis and CXR reviewed and agree with the following reports: Abdomen/Pelvis CT 04/24/25 09:24 EXAM: CT Abdomen and Pelvis Without Intravenous Contrast INDICATION: Nausea, vomiting and dysuria. TECHNIQUE: Axial computed tomography images of the abdomen and pelvis without intravenous contrast. Sagittal and coronal reformatted images were created and reviewed. This CT exam was performed using one or more of the following dose reduction techniques: automated exposure control, adjustment of the mA and/or kV according to patient size, and/or use of iterative reconstruction technique. COMPARISON: 03/31/2025 FINDINGS: Limitations: None. Lung bases: Stable coarse scarring in the right lower lobe. Pleural space: No visualized pleural effusion or pneumothorax. Heart: No abnormality noted. Mediastinum: No abnormality noted. ABDOMEN: Liver: Lack of intravenous contrast limits detection of some masses. No abnormality noted. Gallbladder and bile ducts: No calcified stones or surrounding fluid. No ductal dilation. Pancreas: No pancreatic mass, calcification, inflammation or ductal dilation noted. Spleen: No significant abnormality noted. Adrenals: No significant abnormality noted. Kidneys and ureters: No abnormality noted. No stones. No hydronephrosis. No significant perinephric fluid. Stomach and bowel: Limited assessment of the gastrointestinal tract given moderate surrounding ascites, generalized mesenteric, omental and body wall edema and lack of opacification. There are multiple distal left colonic diverticula. There are multiple dilated thickened small bowel loops which are poorly assessed. There is thickening of the right, transverse and proximal descending colon. There are 2 vague rounded opacities surrounded by ascitic fluid in the pelvis which are likely bowel loops. No visible pneumatosis. PELVIS: Appendix: No findings to suggest acute appendicitis. Bladder: Appears normal for the degree of filling. No stones or inflammation. No large mass. Masses may not be detected in the absence of opacification. Reproductive: No abnormalities noted. ABDOMEN and PELVIS: Intraperitoneal space: There is now small to moderate amounts of low-density ascitic fluid in the abdomen and pelvis. No free air. No organized or loculated collection. Bones/joints: No acute changes. Soft tissues: No significant abnormality noted. Vasculature: Atherosclerotic calcification of the aorta and branches. No aneurysm. Lymph nodes: No pathologically enlarged lymph nodes. IMPRESSION: 1. There is now moderate ascitic fluid and generalized edema within the mesentery, omentum and body wall which limits assessment of the intestinal tract. Impression diffuse small bowel thickening as well as thickening of the right and transverse colon probable. No obstruction. Enterocolitis considered. 2. No drainable collection or free air noted. Chest X-Ray 04/24/25 09:26 EXAM: Radiograph of the Chest 1 View INDICATION: Sepsis TECHNIQUE: Frontal view of the chest. COMPARISON: 11/30/2021 FINDINGS: Lungs and pleural spaces: Stable hyperinflation and minimal right basilar pleural and parenchymal scarring. No consolidation or pulmonary edema. No pleural effusion or pneumothorax. Heart: Shape and configuration within normal limits allowing for technique. Mediastinum: Normal contour. Bones/joints: No fracture, erosion or dislocation. Soft tissues: No abnormality noted. No radiopaque foreign body noted. Vasculature: Stable ectatic aorta. Upper abdomen: No abnormality noted. IMPRESSION: Stable chronic changes. No acute disease. ECG Additional Comments: ECG on 04/24/2025 at 9:53 AM with normal sinus rhythm, rate 84, no ischemic changes Code Status & VTE Plan Code Status Full code VTE Prophylaxis Plan VTE Prophylaxis will be ordered: Yes PG Care Time/CCT Total # of Minutes Spent Total Time Spent with Patient: Total time spent is greater than 50% in coordination of care (as documented) at patient's floor/unit and/or counseling patient: Coding Level of Care Code 39422 INT INP/OBS CARE 3/75MIN Diagnoses JANET (acute kidney injury) N17.9 Hyponatremia E87.1 Enterocolitis K52.9 Malignant neoplasm of breast C50.919
[2025-04-24 15:27] VITALS: RESP 16
[2025-04-24] MEDS ORDERED: ONDANSETRON INJ 2 MG/ML 2 ML VIAL IV PRN (15:28)
[2025-04-24] MEDS ORDERED: MoRPHine SULFATE 2 MG/ML CARP IV PRN (15:28)
[2025-04-24] MEDS: LACTATED RINGER'S 1,000 ML IV SCH (16:20)
[2025-04-24] MEDS: HEPARIN SOD 5,000 UNIT/0.5 ML VIAL SQ SCH (21:29)
[2025-04-24] MEDS: ROSUVASTATIN CALCIUM 5 MG TAB PO SCH (21:29)
[2025-04-25] MEDS: ACETAMINOPHEN 325 MG TAB PO PRN (00:22)
[2025-04-25 06:27] LABS: Basophils # (auto) 0.06 K/uL (0.00-0.20); Basophils % (auto) 1.6 %; Eosinophils # (auto) 0.06 K/uL (0.00-0.50); Eosinophils % (auto) 1.6 %; Hematocrit (blood only) 30.9 % (37.0-47.0); Hemoglobin 10.6 g/dl (12.0-16.0); Immature Granulocytes # (auto) 0.02 K/uL (0.01-0.20); Immature Granulocytes % (auto) 0.5 %; Lymphocytes # (auto) 1.24 K/uL (1.20-3.40); Lymphocytes % (auto) 32.5 %; Mean Corpuscular Hemoglobin 33.9 pg (25.0-34.0); Mean Corpuscular Hgb Conc 34.3 g/dL (32.0-36.0); Mean Corpuscular Volume 98.7 fL (80.0-100.0); Mean Platelet Volume 8.2 fL (9.4-12.4); Monocytes # (auto) 0.24 K/uL (0.11-0.59); Monocytes % (auto) 6.3 %; Neutrophils % (auto) 57.5 %; Platelet Count 381 K/uL (130-400); RDW Coefficient of Variation 15.1 % (11.5-14.5); RDW Standard Deviation 54.8 fL (36.4-46.3); Red Blood Count 3.13 M/uL (4.20-5.40); White Blood Count 3.82 K/ul (4.8-10.8)
[2025-04-25 06:45] LABS: Albumin Globulin Ratio 1.9 (0.9-2); BUN Creatinine Ratio 18.3 (10-20); Bilirubin,Total 0.4 mg/dl (0.2-1.0); Calcium 8.1 mg/dl (8.6-10.3); Creatinine Clr Calc Pharmacy 36.2 ml/min; Globulin 1.8 gm/dl (2.5-4.0); Magnesium 1.9 mg/dl (1.7-2.4); Potassium 4.2 mmol/L (3.5-5.1); Total Protein 5.2 gm/dl (6.0-8.3)
--- NOTE | 2025-04-25 08:10 | Oncology Consultation ---
Date of Consultation April 25, 2025 Assessment & Plan (1) Enterocolitis: (2) Malignant neoplasm of breast: (3) Metastatic adenocarcinoma: Plan -Recommend diagnostic/therapeutic paracentesis to rule out metastatic disease as this may affect treatment decisions. -Follow-up with in outpatient upon discharge. History of Present Illness Reason for Consultation: Metastatic breast cancer Attending Physician: Carter Rose MD History of Present Illness 70-year-old female with history of metastatic breast cancer currently on Ibrance/fulvestrant who was admitted to [facility] with GI complaints. CT abdomen and pelvis revealed new small to moderate amount of ascites, generalized mesenteric edema and diffuse small bowel thickening as well as thickening of right and transverse colon consistent with possible enterocolitis. Oncology was consulted for ascites. Allergies Allergy/AdvReac Type Severity Reaction Status Date / Time diazepam [From Valium] AdvReac Unknown Panic Verified 04/14/25 13:25 attack Home Medications Medication Instructions Recorded Confirmed Type cholecalciferol (vitamin D3) 50 50 mcg PO DAILY 02/18/22 04/24/25 History mcg (2,000 unit) capsule magnesium oxide 400 mg (241.3 mg 400 mg PO DAILY 02/18/22 04/24/25 History magnesium) tablet denosumab 60 mg/mL subcutaneous 60 mg subcut .Q6 months 09/18/22 04/24/25 His tory syringe (Prolia) loratadine 10 mg tablet (Claritin) 10 mg PO DAILY PRN Allergy Symptoms 09/18/22 04/24/25 History fulvestrant 250 mg/5 mL 500 mg IM MO 12/08/23 04/24/25 History intramuscular syringe (Faslodex) rosuvastatin 5 mg tablet 5 mg PO DAILY #90 tabs 06/07/24 04/24/25 Rx palbociclib 125 mg capsule 100 mg PO DAILY 06/21/24 04/24/25 History (Ibrance) gabapentin 300 mg capsule 300 mg PO HS PRN shoulder pain #90 08/10/24 04/24/25 Rx caps amlodipine 5 mg tablet 5 mg PO DAILY #90 tabs 02/02/25 04/24/25 Rx sulfamethoxazole 800 1 tab PO BID 7 days #14 tabs 04/19/25 04/24/25 Rx mg-trimethoprim 160 mg tablet Patient History Medical History Prophylactic chemotherapy oral and monthly injection Seasonal allergies Retinal detachment Right Thyroid nodule monitoring Surgical History History of bilateral mastectomy 01/31/25 History of lumpectomy cancerous masses removed from neck and inside mouth History of cataract surgery Right eye only History of lung surgery VATS- 2010 Hx of colonoscopy History of appendectomy Family History Mother , 68yo CHF (congestive heart failure) Hypertension Heart disease Father , 87yo Parkinsons Hypertension Brother Hypertension Sister No problems noted. Son No problems noted. Son No problems noted. Son No problems noted. Other No family history of adverse response to anesthesia No family history of bleeding disorder Social History Smoking Status: Former smoker Tobacco Type: Cigarettes Age Started Using Tobacco: 15; Age Quit Using Tobacco: 31; packs per day: 1; Cigarettes Per Day: 1 PPD x 15yrs; Second Hand Exposure: No; Do You Dip or Chew Tobacco: No; Hx Alcohol Use: Yes Alcohol type: wine Hx Substance Use: No Preferred Language: Lao Communication Ability: Effective Visual Impairment: No Limitations Hearing Ability: Normal Sampling Expert Required: No Beliefs That Will Affect Care: None marital status: Current Living Situation: Spouse current occupational status: retired current occupation: Mental health counselor at [employer] Other Information That Helps Us Care for You: No Feels Safe at Home: Yes Safety Concerns: Feels Safe At This Time Diet: other caffeine: Yes (2 cups/day) during the past year weight has: remained stable Seatbelt Use: always Assistive Devices: Glasses Results & Data Vital Signs (Past 12 Hours) Vital Signs Temp Pulse Resp BP Pulse Ox O2 Del Method 04/25/25 07:23 36.5 C 90 16 106/70 96 Room Air
--- NOTE | 2025-04-25 13:29 | Electrocardiogram Report ---
Test Reason : Blood Pressure : */* mmHG Vent. Rate : 84 BPM Atrial Rate : 84 BPM P-R Int : 188 ms QRS Dur : 74 ms QT Int : 410 ms P-R-T Axes : 75 69 77 degrees QTcB Int : 484 ms Normal sinus rhythm Normal ECG When compared with ECG of 11-Jan-2025 14:37, No significant change was found Confirmed by Agustin Rosario ([id number]) on 04/25/2025 1:29:21 PM Referred By: REFERRED SELF Confirmed By: Agustin Rosario
--- NOTE | 2025-04-25 14:20 | Hospitalist Progress Note ---
Date of Service April 25, 2025 Assessment & Plan (1) JANET (acute kidney injury): (2) Hyponatremia: (3) Enterocolitis: (4) Malignant neoplasm of breast: Plan This patient is a 70-year-old female with a history of metastatic adenocarcinoma of the breast with mets to cervical lymph nodes/lung/extraocular muscles/lip/bone currently on chemotherapy with Ibrance/fulvestrant, GEORGE, osteoporosis, allergies, HLD, HTN who presents to the ER with nausea/vomiting and diarrhea with some abdominal cramping after being recently treated for urinary tract infection with cefuroxime and then switched to Bactrim. In the ER, she was found to be hyponatremic with a sodium of 126, with JANET with creatinine 1.6, normal lactate, UA with ketones but without signs of infection. A CT abdomen/pelvis showed new small to moderate amount of ascites, and generalized mesenteric edema, and diffuse small bowel thickening as well as thickening of right and transverse colon consistent with possible enterocolitis. #Nausea/vomiting/diarrhea/enterocolitis/ascites- infectious vs cdiff vs viral vs progression of malignancy? LFTs, lipase, and UA within normal limits. Not febrile no evidence of sepsis but is immunosuppressed currently on chemotherapy Advanced to full liquid for dinner IV Zofran as needed for nausea, IV morphine or PO tylneol as needed for abdominal pain. Add simethicone in case gas component of bloating Stool PCR and C. difficile - pending, no BM since admission Consult oncology for opinion on increasing ascites in the abdomen Blood cultures: no growth at 24 hours #Hyponatremia/JANET-sodium 126, creatinine up to 1.6 on admission. Urine osmolality in the 500s, urine sodium 22-consistent with hypovolemia JANET has improved to baseline with IV fluids. Na improved to 128. Received 2L IVF, defer further fluids with PO intake AM BMP #Recent UTI-she has received a total of 9 days of antibiotics between cefuroxime and Bactrim as an outpatient for suspected early pyelonephritis given fevers and urinary symptoms starting prior to 04/14. UA here negative for infection. UA without signs of infection, no further abx needed. #Metastatic breast cancer on chemotherapy/leukopenia/anemia-patient with known metastatic disease to the extraorbital region bilaterally, lip, cervical lymph nodes, bone, lung. Now with increasing ascites on CT abdomen/pelvis. She is status post bilateral mastectomy in 01/2025. Follow[facility] as well as a medical oncologist at [place]. She is currently on Ibrance cycling 3 weeks on 1 week off and monthly intramuscular injections of fulvestrant which she received approximately 1 week ago. - Holding home Ibrance as she is off this cycle (supposed to resume 04/28) - Consult oncology - Follow CBC #HTN- with improved PO intake, resume amlodipine for tomorrow #Osteoporosis-no acute issues. Is on vitamin D and Prolia DVT prophylaxis-high risk for VTE, continue heparin SQ, SCDs Disposition- continue inpatient stay, awaiting oncology consult, labs in a.m. updated at bedside 04/25 Admission and Anticipated Discharge Date Admission Date: April 24, 2025 Supervising Physician Co-Signing Physician Notes The patient was not seen by me. The chart was reviewed. Case discussed with WILMAN Shoemaker. Agree with assessment and plan Subjective patient seen sitting up in bed, present at bedside. States that she is feeling much better than she did yesterday. Still having some episodes of abdominal cramping, no further episodes of diarrhea since she has been here. Feels very bloated, able to tolerate liquid diet Review of Systems Review of Systems: All systems reviewed & are unremarkable except as noted in Subjective Physical Exam Physical Exam: General: NAD, VS as above HEENT: MMM, left upper lip paralysis Resp: normal respiratory effort, lungs clear to auscultation CV: RRR, no murmur, Abd: hypoactive bowel sounds, abdomen distended and firm, discomfort to palpation Extremities: Moves all extremities, no edema Neuro: A&O x3, Skin: intact, no lesions noted Results & Data Results & Data Vital Signs (Past 12 Hours) Vital Signs Temp Pulse Pulse Resp BP Pulse Ox O2 Del Method 04/25/25 12:51 97.5 F L 90 16 117/74 98 Room Air 04/25/25 07:23 97.7 F 90 16 106/70 96 Room Air Laboratory Results cbc and chemistry reviewed Diagnostic Findings CXR reviewed CT A/P reviewed PG Care Time/CCT Total # of Minutes Spent Total Time Spent with Patient: Total time spent is greater than 50% in coordination of care (as documented) at patient's floor/unit and/or counseling patient: Coding Level of Care Code 43743 SUB INP/OBS CARE MIN Diagnoses JANET (acute kidney injury) N17.9 Hyponatremia E87.1 Enterocolitis K52.9 Malignant neoplasm of breast C50.919
[2025-04-25] MEDS: SIMETHICONE 40 MG/0.6 ML 30ML PO PRN (14:53)
[2025-04-26 09:08] LABS: Basophils # (auto) 0.04 K/uL (0.00-0.20); Basophils % (auto) 1.5 %; Eosinophils # (auto) 0.08 K/uL (0.00-0.50); Hematocrit (blood only) 29.6 % (37.0-47.0); Hemoglobin 10.3 g/dl (12.0-16.0); Immature Granulocytes # (auto) 0.02 K/uL (0.01-0.20); Immature Granulocytes % (auto) 0.7 %; Lymphocytes # (auto) 0.84 K/uL (1.20-3.40); Mean Corpuscular Hemoglobin 34.9 pg (25.0-34.0); Mean Corpuscular Hgb Conc 34.8 g/dL (32.0-36.0); Mean Corpuscular Volume 100.3 fL (80.0-100.0); Mean Platelet Volume 8.4 fL (9.4-12.4); Monocytes # (auto) 0.22 K/uL (0.11-0.59); Monocytes % (auto) 8.1 %; Neutrophils # (auto) 1.51 K/uL (1.40-6.50); Neutrophils % (auto) 55.7 %; Platelet Count 383 K/uL (130-400); RDW Coefficient of Variation 15.5 % (11.5-14.5); RDW Standard Deviation 57.5 fL (36.4-46.3); Red Blood Count 2.95 M/uL (4.20-5.40); White Blood Count 2.71 K/ul (4.8-10.8)
[2025-04-26] MEDS: amLODIPine BESYLATE 5 MG TAB PO SCH (09:16)
[2025-04-26] MEDS: CHOLECALCIFEROL 25 MCG (1000 UNITS) TAB PO SCH (09:16)
[2025-04-26 09:26] LABS: BUN Creatinine Ratio 14.7 (10-20); Calcium 8.6 mg/dl (8.6-10.3); Creatinine Clr Calc Pharmacy 42.6 ml/min; Potassium 4.1 mmol/L (3.5-5.1)
[2025-04-26 12:07] VITALS: O2SAT 96
[2025-04-26 12:15] LABS: Appearance Peritoneal Fluid Hazy; Color Peritoneal Fluid Yellow; RBC Peritoneal Fluid Auto < 2000 /uL; WBC Peritoneal Fluid Auto 294 /ul (0-300)
[2025-04-26 12:32] LABS: Albumin Peritoneal Fluid 2.4 gm/dl; Total Protein Peritoneal Fluid 3.5 gm/dl
[2025-04-26 12:34] VITALS: BP 100/65; PULSE 91; TEMP 97.9
[2025-04-26 12:37] LABS: Basophils, Fluid 1 %; Eosinophils, Fluid 1 %; Lymphocytes, Fluid 21 %; Mono,Macrophage,Mesothelial 71 %; Neutrophils, Fluid 6 %
--- NOTE | 2025-04-26 14:57 | Ultrasound Report ---
ULTRASOUND-GUIDED PARACENTESIS CLINICAL HISTORY: Ascites PROCEDURE: Procedure and risks were explained. Informed consent was obtained. A final timeout was com pleted. The abdomen was prepped and draped in sterile fashion. 1% lidocaine was utilized for skin ane sthesia. Utilizing ultrasound guidance, a 5 Frisian safety centesis catheter was advanced into the left lower q uadrant pocket of ascites. Ultrasound images were obtained. 1.1 L of yellow-colored ascites fluid was removed and 500 mL was sent to lab for analysis. The catheter was removed and Band-Aid applied. The patient tolerated the procedure well. Vital signs will be monitored postprocedure. IMPRESSION: Ultrasound-guided paracentesis as above. Performed, dictated, and signed by James Gordon PA-C; to be co-signed by Dr. Alex Caldwell. Electronically signed by: Alex Caldwell M.D. 04/26/2025 2:58 PM
--- NOTE | 2025-04-26 15:22 | Discharge Summary ---
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 She was seen by PCP last week and complained of urinary urgency, foul-smelling urine, suprapubic cramping, and a fever to 103. She was started on cefuroxime and had improvement in the urinary symptoms and fever but then developed profuse diarrhea x 2 days along with nausea. She was not able to eat or drink much of anything for the last 5 to 6 days except small sips of water. She was able to keep down her antibiotics but that maybe the antibiotic caused the problem so her PCP switched her to Bactrim. The diarrhea went away for several days as she was unable to eat but then she had another loose stool last evening. She denies significant abdominal pain but has some lower abdominal cramping. There is no blood in the stool or vomit. Her urine output has gone down. In the ER, she was found to be hyponatremic with a sodium of 126, with JANET with creatinine 1.6, normal lactate, normal vital signs except for mildly low temperature. Her UA only showed ketones but did not show evidence of infection. A CT abdomen/pelvis showed new small to moderate amount of ascites, and generalized mesenteric edema, and diffuse small bowel thickening as well as thickening of right and transverse colon consistent with possible enterocolitis. Specialty Data Hospitalist Discharge diagnosis: 1. Enterocolitis 2. Ascites 3. JANET with dehydration and hyponatremia Discharge exam: Vital Signs Temp Pulse Resp BP Pulse Ox O2 Del Method 04/26/25 12:32 36.6 C 91 H 16 100/65 96 Room Air 04/26/25 12:02 37.1 C 84 16 105/55 L 96 Room Air 04/26/25 07:21 36.3 C L 79 16 108/70 98 Room Air 04/25/25 20:05 36.8 C 82 16 107/75 96 Room Air GENERAL: 70 yo thin WF. A&Ox4. No distress. LUNGS: Clear to auscultation bilaterally. No W/R/R. CARDIOVASCULAR: Regular rate and rhythm. ABDOMEN: Soft, non-tender and non-distended. +BS x 4 quad. +ascites EXTREMITIES: No edema. Non-tender. Peripheral pulses +2/4. PSYCHIATRIC: Cooperative. Appropriate mood and affect. SKIN: Warm, dry, intact. No rashes or lesions. 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 In the ER, she was found to be hyponatremic with a sodium of 126, with JANET with creatinine 1.6, normal lactate, UA with ketones but without signs of infection. A CT abdomen/pelvis showed new small to moderate amount of ascites, and generalized mesenteric edema, and diffuse small bowel thickening as well as thickening of right and transverse colon consistent with possible enterocolitis. #N/V/D-enterocolitis/ascites- infectious vs cdiff vs viral vs progression of malignancy? LFTs, lipase, and UA within normal limits. Not febrile no evidence of sepsis but is immunosuppressed currently on chemotherapy Advanced to full liquid for dinner IV Zofran as needed for nausea, IV morphine or PO tylneol as needed for abdomin al pain. Add simethicone in case gas component of bloating Stool PCR and C. difficile - pending, no BM since admission - doubt c.diff at this point as it doesn't fit the clinical picture Consult oncology, recommended paracentesis for both diagnostic and therapeutic purposes Discussed with IR, she underwent procedure on 04/26, 1.1L drained and sent for analysis Blood cultures: no growth at 24 hours #Hyponatremia/JANET-sodium 126, creatinine up to 1.6 on admission. Urine osmolality in the 500s, urine sodium 22-consistent with hypovolemia JANET has improved to baseline with IV fluids. Received 2L IVF, defer further fluids with PO intake Na improved to 130 on 04/26 #Recent UTI-she has received a total of 9 days of antibiotics between cefuroxime and Bactrim as an outpatient for suspected early pyelonephritis given fevers and urinary symptoms starting prior to 04/14. UA here negative for infection. UA without signs of infection, no further abx needed. #Metastatic breast cancer on chemotherapy/leukopenia/anemia-patient with known metastatic disease to the extraorbital region bilaterally, lip, cervical lymph nodes, bone, lung. Now with increasing ascites on CT abdomen/pelvis. She is status post bilateral mastectomy in 01/2025. Follows with Dr. Sanches at [facility] as well as a medical oncologist at [place]. She is currently on Ibrance cycling 3 weeks on 1 week off and monthly intramuscular injections of fulvestrant which she received approximately 1 week ago. -Holding home Ibrance as she is off this cycle (supposed to resume 04/28) -Appreciate oncology input, paracentesis performed, will need f/u as outpatient #HTN- with improved PO intake, resume amlodipine for tomorrow #Osteoporosis-no acute issues. Is on vitamin D and Prolia Patient is medically stable for discharge at this time. Her peritoneal fluid has been sent for analysis. She will require f/u with oncology to review all results and discuss how this impacts her cancer treatment. She can advance her diet to low residue/low fiber. Follow up with pcp within 1 week or sooner if needed. Plan of care has been d/w Dr. Rose who is in agreement with aforementioned. Total time for discharge: 35 minutes Supervising Physician Co-Signing Physician Notes The patient was not seen by me. The chart was reviewed. Case discussed with WILMAN Ji. Agree with assessment and plan Coding Level of Care Code 99279 INP/OBS DISCH >30 MIN Diagnoses JANET (acute kidney injury) N17.9 Hyponatremia E87.1 Enterocolitis K52.9 Malignant neoplasm of breast C50.919
== END 2025-04-26 16:12 | disposition home or self-care (01) | DRG 392 ==
LOC: ED 09:00 → SUATTDRO 12:04 → INTOOBSV 12:04 → 3E 12:04